=== PATIENT | female | born 1955 | race Two or more races ===

== ENCOUNTER 2024-05-08 19:04 | Inpatient (IN) | payer OTHER ==
[~2024-05-08] VITALS: Ht 167.6 cm; Wt 61.7 kg
[2024-05-08] MEDS: SODIUM CHLORIDE 0.9% 1,000 ML IV ONE (19:45)
[2024-05-08 21:07] LABS: Basophils # (auto) 0.1 10 ^3/uL (0-0.2); Basophils % (auto) 1.3 % (0.0-2.0); Eosinophils # (auto) 0.1 10 ^3/uL (0-0.8); Eosinophils % (auto) 1.3 % (0.0-7.0); Hematocrit 47.6 % (36.0-46.0); Hemoglobin 15.8 g/dL (12.2-16.2); Lymphocytes % (auto) 24.9 % (10.0-50.0); Mean Corpuscular Hemoglobin 29.4 pg (28.0-32.0); Mean Corpuscular Hgb Conc. 33.3 g/dL (32.0-36.0); Mean Corpuscular Volume 88.3 fL (80.0-100.0); Monocytes # (auto) 0.5 10 ^3/uL (0-1.3); Monocytes % (auto) 6.1 % (0.0-12.0); Neutrophils # (auto) 5.4 10 ^3/uL (1.6-8.6); Neutrophils % (auto) 66.4 % (37.0-80.0); Red Blood Cells 5.39 10^6/uL (4.0-5.20); White Blood Cell 8.1 10^3/uL (4.4-10.8)
[2024-05-08 21:22] LABS: Partial Thromboplastin Time 25.9 SEC (24.5-34.5); Prothrombin Time 10.6 sec (9.3-11.8)
[2024-05-08 21:25] LABS: Alanine Aminotransferase 11 U/L (7-40); Alkaline Phosphatase 72 U/L (46-116); Anion Gap 5 (5-15); Aspartate Aminotransferase 9 U/L (13-40); BUN/Creatinine Ratio 15.5 (10.0-20.0); Bilirubin, Total 0.4 mg/dL (0.2-1.0); Blood Urea Nitrogen 13 mg/dL (9-23); Calcium 11.2 mg/dL (8.5-10.1); Carbon Dioxide 23 mmol/L (20-30); Chloride 109 mmol/L (98-107); Glucose 211 mg/dL (74-106); Potassium 4.6 mmol/L (3.5-5.1); Sodium 137 mmol/L (136-145); Total Protein 8.2 g/dL (5.7-8.2)
[2024-05-09] VITALS (16 sets, daily range): BP systolic 113–201; BP diastolic 60–101; PULSE 54–97; RESP 13–22; TEMP 97.4–98.1; O2SAT 95–100
[2024-05-09] MEDS ORDERED: NITROGLYCERIN 0.4 MG SL TAB SL PRN (03:15)
[2024-05-09] MEDS ORDERED: MORPHINE SULFATE INJ 2 MG/ml SYRG IV PRN (03:15)
[2024-05-09] MEDS ORDERED: ONDANSETRON HCL 4 MG/2 ML VIAL IV PRN (03:15)
[2024-05-09] MEDS: hydrALAZINE HCL 20 MG/ML VL IV ONE (04:29)
[2024-05-09 09:06] LABS: Basophils # (auto) 0.1 10 ^3/uL (0-0.2); Basophils % (auto) 1.3 % (0.0-2.0); Eosinophils # (auto) 0.1 10 ^3/uL (0-0.8); Eosinophils % (auto) 1.2 % (0.0-7.0); Hematocrit 44.1 % (36.0-46.0); Hemoglobin 14.7 g/dL (12.2-16.2); Lymphocytes # (auto) 3.1 10 ^3/uL (0.4-5.4); Lymphocytes % (auto) 35.3 % (10.0-50.0); Mean Corpuscular Hemoglobin 29.4 pg (28.0-32.0); Mean Corpuscular Hgb Conc. 33.4 g/dL (32.0-36.0); Monocytes # (auto) 0.6 10 ^3/uL (0-1.3); Monocytes % (auto) 6.3 % (0.0-12.0); Neutrophils # (auto) 4.9 10 ^3/uL (1.6-8.6); Neutrophils % (auto) 55.9 % (37.0-80.0); Nucleated Red Blood Cells % 0.3 %; Red Blood Cells 5.01 10^6/uL (4.0-5.20); Red Cell Distribution Width 14.1 % (11.8-14.3); White Blood Cell 8.8 10^3/uL (4.4-10.8)
[2024-05-09 09:21] LABS: Anion Gap 4 (5-15); Carbon Dioxide 25 mmol/L (20-30); Chloride 108 mmol/L (98-107); Potassium 3.8 mmol/L (3.5-5.1); Sodium 137 mmol/L (136-145)
[2024-05-09 09:22] LABS: Calcium 10.9 mg/dL (8.5-10.1)
[2024-05-09 09:27] LABS: BUN/Creatinine Ratio 21.2 (10.0-20.0); Blood Urea Nitrogen 18 mg/dL (9-23); Glucose 191 mg/dL (74-106)
[2024-05-09] MEDS ORDERED: amLODIPine BESYLATE 5 MG TAB PO SCH (10:00)
[2024-05-09] MEDS ORDERED: TRIAMTERENE/HCTZ 37.5/25 MG CAP/TAB PO SCH (10:00)
[2024-05-09] MEDS ORDERED: hydrALAZINE HCL 20 MG/ML VL IV PRN (10:15)
[2024-05-09] MEDS ORDERED: DEXTROSE (50%) 50ML SYRG IV PRN (10:15)
[2024-05-09] MEDS: LISINOPRIL 5 MG TAB PO SCH (10:49)
[2024-05-09] MEDS: ASPirin 325 MG TAB PO ONE (10:49)
[2024-05-09] MEDS: MEMANTINE HCL 5 MG TAB PO SCH (10:49)
[2024-05-09] MEDS: NIFEdipine ER 30 MG TAB PO ONE (11:01)
[2024-05-09] MEDS: InsuLIN REG 1unit/0.01ml Soln (100units/ml) SC SCH ×2 (11:30→22:15)
[2024-05-09] MEDS: ACCU-CHEK COMFORT CURVE STRIP VI SCH (11:30)
[2024-05-09 11:59] LABS: Triglycerides 130 mg/dL (< 150)
[2024-05-09 12:00] LABS: LDL Cholesterol 90 mg/dL (< 100)
[2024-05-09 12:01] LABS: Cholesterol 160 mg/dL (< 200); HDL Cholesterol 59 mg/dL (40-59)
[2024-05-09] MEDS: MIDAZOLAM HCL 2MG/2ML 2ml VIAL (1mg/ml) ONE (14:00)
[2024-05-09] MEDS: SODIUM CHL 0.9% 0 ML ONE (14:00)
[2024-05-09] MEDS: ANGIOMAX 250 MG VIAL IV ONE (14:00)
[2024-05-09] MEDS: fentaNYL CITRATE 100 MCG/2 ML VL ONE (14:00)
[2024-05-09] MEDS: LIDOCAINE 2%HCL (LOCAL ANESTH.) INJ 20ML MDV ONE (14:01)
[2024-05-09] MEDS: HEPARIN SODIUM (PORCINE) 5000 UNITS/ML 1ML VIAL ONE (14:01)
[2024-05-09] MEDS: IOHEXOL 350 MG/ML 100ML IJ ONE (14:02)
[2024-05-09] MEDS: VERAPAMIL 2.5MG/ML INJ 2ML VIAL IV ONE (14:11)
[2024-05-09] MEDS: IODIXANOL 320MG/ML 100ML BTL IV ONE (15:11)
[2024-05-09] MEDS: CHOLECALCIFEROL (VITD3) 1,000UNIT=25mCg TAB PO ONE (18:13)
[2024-05-09] MEDS: ACETAMINOPHEN 325 MG TAB PO PRN (18:13)
[2024-05-09] MEDS: ALBUTEROL SULF 2.5 MG/0.5ML(0.5%) NEB SOLN NEB PRN (19:53)
[2024-05-09] MEDS: ATORVASTATIN 20 MG TAB PO SCH (22:13)
[2024-05-10] VITALS (15 sets, daily range): BP systolic 104–160; BP diastolic 51–76; PULSE 58–85; RESP 17–20; TEMP 36.7; O2SAT 95–100
[2024-05-10] MEDS ORDERED: HYDROcodone-ACET 5/325MG TAB PO PRN (05:30)
[2024-05-10 07:29] LABS: Anion Gap 5 (5-15); Calcium 10.7 mg/dL (8.7-10.4); Carbon Dioxide 25 mmol/L (20-30); Chloride 107 mmol/L (98-107); Potassium 3.9 mmol/L (3.5-5.1); Sodium 137 mmol/L (136-145)
[2024-05-10 07:35] LABS: BUN/Creatinine Ratio 23.4 (10.0-20.0); Blood Urea Nitrogen 18 mg/dL (9-23); Glucose 175 mg/dL (74-106)
[2024-05-10 07:36] LABS: Basophils # (auto) 0.1 10 ^3/uL (0-0.2); Basophils % (auto) 0.9 % (0.0-2.0); Eosinophils # (auto) 0.2 10 ^3/uL (0-0.8); Eosinophils % (auto) 1.8 % (0.0-7.0); Hematocrit 42.6 % (36.0-46.0); Hemoglobin 14.2 g/dL (12.2-16.2); Lymphocytes # (auto) 2.5 10 ^3/uL (0.4-5.4); Lymphocytes % (auto) 26.1 % (10.0-50.0); Mean Corpuscular Hemoglobin 29.6 pg (28.0-32.0); Mean Corpuscular Hgb Conc. 33.2 g/dL (32.0-36.0); Mean Corpuscular Volume 88.9 fL (80.0-100.0); Monocytes # (auto) 0.7 10 ^3/uL (0-1.3); Monocytes % (auto) 7.1 % (0.0-12.0); Neutrophils # (auto) 6.2 10 ^3/uL (1.6-8.6); Neutrophils % (auto) 64.1 % (37.0-80.0); Nucleated Red Blood Cells % 0.1 %; Red Blood Cells 4.79 10^6/uL (4.0-5.20); White Blood Cell 9.6 10^3/uL (4.4-10.8)
[2024-05-10] MEDS ORDERED: ASPI-378 PO (09:40)
[2024-05-10] MEDS ORDERED: LISI2.5T47 PO (09:40)
[2024-05-10] MEDS ORDERED: ATOR-507 PO (09:40)
[2024-05-10] MEDS: ASPirin 81 mg TAB PO SCH (09:52)
[2024-05-10] MEDS: CHOLECALCIFEROL (VITD3) 1,000UNIT=25mCg TAB PO SCH (09:53)
[2024-05-10] MEDS: NIFEdipine ER 30 MG TAB PO SCH (09:53)
[2024-05-11 01:00] VITALS: BP 124/86; PULSE 64; RESP 16; TEMP 98.2; O2SAT 94
[2024-05-11 05:00] VITALS: BP 125/73; PULSE 70; RESP 16; TEMP 97.7; O2SAT 96
[2024-05-11 07:41] VITALS: O2SAT 96
[2024-05-11 07:55] VITALS: RESP 20; O2SAT 100
[2024-05-11 07:57] LABS: Albumin 4.3 g/dL (3.2-4.8); Alkaline Phosphatase 65 U/L (46-116); Anion Gap 7 (5-15); Aspartate Aminotransferase 10 U/L (13-40); BUN/Creatinine Ratio 19.1 (10.0-20.0); Bilirubin, Total 0.5 mg/dL (0.2-1.0); Blood Urea Nitrogen 13 mg/dL (9-23); Calcium 10.4 mg/dL (8.5-10.1); Carbon Dioxide 26 mmol/L (20-30); Chloride 108 mmol/L (98-107); Glucose 106 mg/dL (74-106); Potassium 4.1 mmol/L (3.5-5.1); Sodium 141 mmol/L (136-145); Total Protein 7.1 g/dL (5.7-8.2)
[2024-05-11 08:00] VITALS: BP 138/82; PULSE 64; RESP 16; TEMP 97.5; O2SAT 100
[2024-05-11 08:37] LABS: Alanine Aminotransferase 9 U/L (7-40)
== END 2024-05-11 09:30 | disposition home or self-care (01) | DRG 287 ==
LOC: ER 19:04 → EDBD 19:04 → TELE 05-09 03:10 → TELE-WESTW 05-09 18:01
PROVIDERS: ADMIT Internal Medicine; ATTEND Internal Medicine
PROC: 4A023N7 Measurement of Cardiac Sampling and Pressure, Left Heart, Percutaneous Approach (ICD-10-PCS; principal; 2024-05-09)
PROC: B211YZZ Fluoroscopy of Multiple Coronary Arteries using Other Contrast (ICD-10-PCS; 2024-05-09)
DX: I25.110 Atherosclerotic heart disease of native coronary artery with unstable angina pectoris (principal); I16.0 Hypertensive urgency; F17.210 Nicotine dependence, cigarettes, uncomplicated; J44.9 Chronic obstructive pulmonary disease, unspecified; E78.5 Hyperlipidemia, unspecified; E11.9 Type 2 diabetes mellitus without complications; K21.9 Gastro-esophageal reflux disease without esophagitis; E55.9 Vitamin D deficiency, unspecified; Z86.73 Personal history of transient ischemic attack (TIA), and cerebral infarction without residual deficits; Z79.84 Long term (current) use of oral hypoglycemic drugs; Z79.4 Long term (current) use of insulin; Z79.899 Other long term (current) drug therapy
CPT/HCPCS: 36415; 70450; 71045; 80048; 80053; 80061; 82306; 82962; 83036; 83735; 83880; 83970; 84443; 84484; 85025; 85379; 85610; 85730; 93306; 93458; 93886; 94640; 99152; G0378; J1815; J2250; Q9967